=== PATIENT | female | born 1945 | race Caucasian/White ===

== ENCOUNTER 2016-12-24 21:42 | Inpatient (IN) | payer OTHER ==
[~2016-12-24] VITALS: Ht 152.4 cm; Wt 111.6 kg
--- NOTE | ~2016-12-24 | EKG ---
PATIENT: LISSETH PARISI UNIT #: [id number] Ventricular Rate: 67 BPM Atrial Rate: 67 BPM P-R Interval: 150 ms QRS Duration: 74 ms Q-T Interval: 416 ms QTC Calculation(Bezet): 439 ms P [place]: 31 degrees Calculated R [place]: 76 degrees Calculated T [place]: 142 degrees Diagnosis Line: Normal sinus rhythm Diagnosis Line: ST and T wave abnormality, consider anterolateral Diagnosis Line: ischemia Diagnosis Line: Abnormal ECG Diagnosis Line: When compared with ECG of 29-DEC-2016 08:18, Diagnosis Line: Premature supraventricular complexes are no longer Diagnosis Line: Present Diagnosis Line: Confirmed by JONNY BUCKNER MD ([id number]) on 01/01/2017 Diagnosis Line: 6:02:08 PM INTERPRETING MD: SITA TRAORE
--- NOTE | ~2016-12-24 | EKG ---
PATIENT: LISSETH PARISI UNIT #: [id number] Ventricular Rate: 103 BPM Atrial Rate: 103 BPM P-R Interval: 140 ms QRS Duration: 84 ms Q-T Interval: 360 ms QTC Calculation(Bezet): 471 ms P [place]: 41 degrees Calculated R [place]: 26 degrees Calculated T [place]: 153 degrees Diagnosis Line: Sinus tachycardia Diagnosis Line: Possible Left atrial enlargement Diagnosis Line: Poor R wave progression questionable lead position Diagnosis Line: or body habitus versus Anterior infarct , age Diagnosis Line: undetermined Diagnosis Line: ST and T wave abnormality, consider lateral ischemia Diagnosis Line: Abnormal ECG Diagnosis Line: No previous ECGs available Diagnosis Line: Confirmed by KEITH MCKEON MD ([id number]) on Diagnosis Line: 12/27/2016 3:51:20 PM INTERPRETING MD: SEDA
--- NOTE | ~2016-12-24 | CR63 ---
[facility] A Service of [facility] RADIOLOGY TEXT RESULTS PATIENT: LISSETH PARISI LOCATION: [facility] 334 : 46 UNIT #: [id number] AGE: [address]: Chuy Ortega MD SEX: F ORDER DR: [id number] [id number] [place], [place] [address] [id number] I MR#: [id number] #: [id number] NAME: LISSETH PARISI : 1945 SEX: F STUDY DATE/TIME: 12/28/2016 9:21 UNIT: [address] ROOM: [facility] STUDY DESCRIPTION: CR Chest 2 View Attending Physician: Chuy Ortega M.D. Referring Physician: Amee De La Torre M.D. Ordering Physician: Ricky Tee M.D. Primary Care Physician: Amee De La Torre M.D. MEDICAL IMAGING REPORT This report is preliminary unless electronic signature is present EXAM Chest x-ray HISTORY Shortness of breath, cough, chest pain for the past 3 days. COMPARISON 12/24/2016 TECHNIQUE Two views of the chest were obtained. FINDINGS The inspiratory effort is shallow. Bilateral pleural effusions are again noted and not significantly changed. Pulmonary vascular markings are mildly prominent and cardiomegaly is again noted. No new focal infiltrates are seen on either side. IMPRESSION Shallow inspiratory effort. Pulmonary vascular congestion with bilateral effusions and cardiomegaly has not changed significantly since the previous examination when differences in patient positioning are taken into account. Dictated by... Earl Mcgarry M.D. THIS IS AN ELECTRONICALLY VERIFIED REPORT Earl Mcgarry M.D. at 12/30/2016 6:00 AM RLF/adriana TD: 12/29/2016 07:08 [facility] A Service of [facility] RADIOLOGY TEXT RESULTS PATIENT: LISSETH PARISI LOCATION: [facility] 334- : 46 UNIT #: [id number] AGE: [address]: Chuy Ortega MD SEX: F ORDER DR: JOB #: [id number] MEDICAL IMAGING REPORT Page 1 of 1 COPY
--- NOTE | ~2016-12-24 | A ---
[facility] Nutrition Therapy DATE: 12/26/16 Patient: LISSETH PARISI Physician: SANJUANA Address: [address] [place] [address] Room/Bed: [address] [place] [address], Zip: [place] [address] Admit Date: 12/25/16 Date of : 46 Height: 5 0 Weight: 259 117.6 NUTRITIONAL ASSESSMENT: REASON: CONSULT PER NURSING - CHF DIET EDUCATION PATIENT ADMITTED FOR DYSPNEA, CHF, QUESTIONABLE NONSTEMI PMH: HTN, DM, DYSLIPIDEMIA, RECENT BRONCHITIS Anthropometrics: HT: 60", WT: 259#, BMI: 50.6 Assessment: PATIENT IS A 71 Y/O FEMALE ADMITTED FOR ABOVE. DURING VISIT PATIENT STATED SHE HAD LAP BAND SURGERY IN 2007 AND HAS LOST 75-80# SINCE THEN. PATIENT USED TO DO THE WEIGHT WATCHERS PROGRAM. THIS RD DISCUSSED THE IMPORTANCE OF FOLLOWING A CONSTANT CARBOHYDRATE DIET FOR HER DM, AND LOW NA/LOW FAT FOR HER CHF. PATIENT WAS RECEPTIVE OF THE INFORMATION, HOWEVER SHE DID NOT SEEM VERY INTERESTED IN FOLLOWING THE DIET OUTSIDE OF THE FACILITY. PATIENT STATED SHE "KNOWS WHAT TO DO" WHEN IT COMES TO HER DIABETES, AND SHE HAS A HARD TIME GIVING UP SALT. THE PATIENT ALSO WENT ON TO STATE THAT SHE HAS A FAMILY HISTORY OF DIABETES AND HEART DISEASE, SHE WAS BORN INTO IT, AND THAT IT WAS IN GOD'S HANDS NOW. THIS RD LEFT DIET EDUCATION MATERIAL AT BEDSIDE AND THE PATIENT DID NOT HAVE ANY FURTHER NUTRITION EDUCATION QUESTIONS. Intervention: NPO STATUS CURRENTLY, MEDS/FLUIDS PER MD Recommendations: 1. PATIENT CURRENTLY NPO. ONCE MEDICALLY FEASIBLE, RESUME 2GM NA, CC DIET WITH NO CAFFEINE 2. CONSULT RD WITH ANY FURTHER NUTRITION QUESTIONS OR CONCERNS Respectfully, BEVERLEY FORTE, RD, LD Food and Nutritional Services [facility] cc: client file
--- NOTE | ~2016-12-24 | EKG ---
PATIENT: LISSETH PARISI UNIT #: [id number] Ventricular Rate: 81 BPM Atrial Rate: 81 BPM P-R Interval: 138 ms QRS Duration: 78 ms Q-T Interval: 370 ms QTC Calculation(Bezet): 429 ms P [place]: 47 degrees Calculated R [place]: 32 degrees Calculated T [place]: 164 degrees Diagnosis Line: Normal sinus rhythm Diagnosis Line: Anterior infarct , age undetermined Diagnosis Line: T wave abnormality, consider lateral ischemia Diagnosis Line: Abnormal ECG Diagnosis Line: No previous ECGs available Diagnosis Line: Confirmed by LOU SPANN MD ([id number]) on Diagnosis Line: 12/26/2016 11:32:47 AM INTERPRETING MD: MARIA INES TRAORE
--- NOTE | ~2016-12-24 | EKG ---
PATIENT: LISSETH PARISI UNIT #: [id number] Ventricular Rate: 69 BPM Atrial Rate: 69 BPM P-R Interval: 152 ms QRS Duration: 84 ms Q-T Interval: 456 ms QTC Calculation(Bezet): 488 ms P [place]: 32 degrees Calculated R [place]: 28 degrees Calculated T [place]: 137 degrees Diagnosis Line: Normal sinus rhythm Diagnosis Line: Septal infarct (cited on or before 24-DEC-2016) Diagnosis Line: ST and T wave abnormality, consider anterolateral Diagnosis Line: ischemia Diagnosis Line: Abnormal ECG Diagnosis Line: When compared with ECG of 24-DEC-2016 22:26, Diagnosis Line: (unconfirmed) Diagnosis Line: T wave inversion now evident in Anterior leads Diagnosis Line: QT has lengthened Diagnosis Line: Confirmed by LOU SPANN MD ([id number]) on Diagnosis Line: 12/26/2016 11:39:15 AM INTERPRETING MD: MARIA INES TRAORE
--- NOTE | ~2016-12-24 | HP ---
Unit #: [id number] #: [id number] Patient: LISSETH PARISI [id number] [facility] [address] [facility]. [place], [place] [address] [id number] I MR#: [id number] NAME: LISSETH PARISI. ROOM: 334 Age: 71 Sex: F Admission Date: 12/25/2016 : 1945 Attending Physician: Chuy Ortega M.D. Referring Physician: Amee De La Torre M.D. Primary Care Physician: Amee De La Torre M.D. HISTORY AND PHYSICAL CHIEF COMPLAINT Dyspnea. HISTORY OF PRESENT ILLNESS Ms. Lara is a pleasant 71-year-old female, seen in room 334 at [facility]. She has no prior history of cardiac disease, myocardial infarction, stent. She is a lifelong nonsmoker. She states that she may have had a small stroke after her son of drug overdose last year. She is admitted with hypoxemia and continued dyspnea. She presented to an urgent care because she had bronchitis for 2 weeks, could not get her med she states, and started to become more short of breath, especially with exertion. Apparently, her oxygen level was low, and they left her car at the urgent care and transported [facility] to [facility]. She states that the main problem is she could not get her antibiotics. She has not developed any chest pain with exertion. Her mother in her 50s of a myocardial infarction. Ms. Lara has a history of hypertension, dyslipidemia, as well as diabetes. She stated to the people in the emergency room that she had coronary artery disease and CHF, although she stated to me that she did not have any. She has had no PND, orthopnea, syncope, or presyncope. She has had no edema or claudication. In the emergency room, her ECG showed no acute ST changes. Her glucose was 221, creatinine 1.1, potassium 4.3. Liver enzymes slightly elevated at 49 and 43 respectively. Troponin elevated at 0.49 at 3:50 this morning. Hemoglobin was 13.7, white blood count 8.0, platelet count 181,000. SOCIAL HISTORY Denies alcohol or tobacco in any form. FAMILY HISTORY Borderline positive, mother dying at age 59 suddenly. REVIEW OF SYSTEMS As per history of present illness. Otherwise, as stated below. GENERAL: No recent fever or chills. No recent weight change. ENDOCRINE: Negative for thyroid disease. Unit #: [id number] #: [id number] Patient: LISSETH PARISI HEENT: No auditory or visual disturbances. GASTROINTESTINAL: No melena, no hematochezia. RESPIRATORY: Difficulty getting breath. CARDIOVASCULAR: Vide supra. GENITOURINARY: No dysuria. No back pain suggestive of nephrolithiasis. NEUROLOGIC: No seizure disorder, recent CVA, or TIA. PSYCHOLOGICAL: No depression. PAST MEDICAL HISTORY 1. Hypertension. 2. Diabetes. 3. Dyslipidemia. 4. Recent bronchitis. ALLERGIES Iodine, iodine containing products, penicillins, codeine, epinephrine, hydrochlorothiazide, erythromycin, sulfamethoxazole from Bactrim, trimethoprim, and amoxicillin. MEDICATIONS Zetia 10 mg daily, nitroglycerin 0.4 mg daily, Starlix 60 mg b.i.d., Glucophage 500 mg b.i.d., Cozaar 100 mg b.i.d., insulin, Flonase, Tessalon, aspirin, ProAir. PHYSICAL EXAMINATION GENERAL: Pleasant, little bit dyspneic, in no acute distress. VITAL SIGNS: Respiratory rate is 19, heart rate 61 and regular, blood pressure 122/54, height 5 feet 0 inches, weight 260 pounds, BMI 50. SKIN: Warm and dry. No xanthelasma. MUSCULOSKELETAL: No missing digits. Moves easily for evaluation. NEUROLOGICAL: Appropriate mood and affect. Alert and oriented x3. HEENT: Pupils equal, round and reactive. No oral cyanosis. No icterus. NECK: Carotids clear to auscultation with no carotid bruits. Normal carotid upstroke bilaterally. Thyroid is normal in size and texture without masses or tenderness. CHEST: Clear to auscultation with no rales or wheezes. Good effort. CARDIAC: Normal point of maximum impulse. Normal S1 and S2. No S3, S4 or rub. ABDOMEN: No hepatosplenomegaly, masses or tenderness. Normal bowel sounds. No abdominal bruits heard. EXTREMITIES: No clubbing, cyanosis or edema. Excellent posterior tibial and dorsalis pedis pulses. DIAGNOSTIC STUDIES LABORATORY RESULTS: As above regarding ECG and troponins. BNP was elevated at 2145. IMPRESSION 1. Bronchitis. 2. Type [address]-elevation myocardial infarction with congestive heart failure probably acute on chronic, diastolic, likely related to the bronchitis. 3. Possible sleep apnea. 4. Hypertension. 5. Dyslipidemia. 6. Possible coronary artery disease and congestive heart failure in the past. 7. Diabetes. Unit #: [id number] #: [id number] Patient: LISSETH PARISI 8. No family history or tobacco history. PLANS 1. We will get Pulmonary involved regarding the bronchitis. 2. We will get Internal Medicine involved to help manage diabetes. 3. We will do an echo today. If significant CHF is present, we will do cardiac catheterization. If not, we will probably just do a stress test. We will see how she does. 4. We will diurese her. This should help her dyspnea. She needs an ischemic workup as well as a workup for sleep apnea. We will get care management involved since the patient did not appear to be procuring medications. Dictated by Ghazal Hu/moiz TD: 12/26/2016 02:39 JOB #: [id number] HISTORY AND PHYSICAL Page 1 of 1 X Lance Alston MD X HISTORY AND PHYSICAL
--- NOTE | ~2016-12-24 | CR72 ---
[facility] A Service of [facility] RADIOLOGY TEXT RESULTS PATIENT: LISSETH PARISI LOCATION: [facility] 334- : 46 UNIT #: [id number] AGE: [address]: Chuy Ortega MD SEX: F ORDER DR: [id number] [facility] [address] [facility]. [place], [place] [address] [id number] I MR#: [id number] #: [id number] NAME: LISSETH PARISI : 1945 SEX: F STUDY DATE/TIME: 12/24/2016 22:36 UNIT: [address] ROOM: [facility] STUDY DESCRIPTION: CR Chest Single View Portable Attending Physician: Chuy Ortega M.D. Referring Physician: Amee De La Torre M.D. Ordering Physician: Sage Stafford D.O. Primary Care Physician: Amee De La Torre M.D. MEDICAL IMAGING REPORT This report is preliminary unless electronic signature is present EXAM Portable chest, 12/24 22:36 hours INDICATION Cough, shortness of air and congestion for 3 days. FINDINGS AP portable chest is compared with 01/11/2016. Heart is enlarged. There is vascular congestion and pulmonary edema suggesting CHF. There are small bilateral pleural effusions. There is more dense opacity in the right base which may reflect atelectasis. Pneumonia should be excluded clinically. No pneumothorax. Dictated by... Earl Fontenot Jr., M.D. THIS IS AN ELECTRONICALLY VERIFIED REPORT Earl Fontenot Jr., M.D. at 12/26/2016 1:52 AM AJ/altagracia TD: 12/25/2016 11:47 JOB #: [id number] MEDICAL IMAGING REPORT Page 1 of 1 COPY
--- NOTE | ~2016-12-24 | BMI ---
[facility] Nutrition Therapy DATE: 12/25/16 Patient: LISSETH PARISI Physician: SANJUANA Address: [address] [place] [address] Room/Bed: [address] [place] [address], Zip: [place] [address] Admit Date: 12/25/16 Date of : 46 Height: 5 0 Weight: 260 117.93 HIGH BMI NOTE: DX: 71 y/o female, no H&P currently available ANTHROPOMETRICS: Ht: 60", Wt: 117.9 kg, BMI: 50 (stage III obese) DIET: Healthy heart INTERVENTION: Restricted diet, meds/fluids per MD RECOMMENDATIONS: Agree with above diet to promote a gradual weight loss towards a healthy BMI range. Add consistent carb restriction if pt has a hx of DM. Respectfully, Amee Trimble, JUANITA, LD Food and Nutritional Services [facility] cc: client file
--- NOTE | ~2016-12-24 | EKG ---
PATIENT: LISSETH PARISI UNIT #: [id number] Ventricular Rate: 65 BPM Atrial Rate: 65 BPM P-R Interval: 152 ms QRS Duration: 76 ms Q-T Interval: 446 ms QTC Calculation(Bezet): 463 ms P [place]: 19 degrees Calculated R [place]: 33 degrees Calculated T [place]: 144 degrees Diagnosis Line: Sinus rhythm with Premature supraventricular Diagnosis Line: complexes Diagnosis Line: Low voltage QRS Diagnosis Line: Septal infarct (cited on or before 24-DEC-2016) Diagnosis Line: ST and T wave abnormality, consider anterolateral Diagnosis Line: ischemia Diagnosis Line: Abnormal ECG Diagnosis Line: When compared with ECG of 26-DEC-2016 22:47, Diagnosis Line: Premature supraventricular complexes are now Diagnosis Line: Present Diagnosis Line: Vent. rate has decreased BY 38 BPM Diagnosis Line: Serial changes of Septal infarct Present Diagnosis Line: Confirmed by JONNY BUCKNER MD ([id number]) on 12/30/2016 Diagnosis Line: 5:22:59 AM INTERPRETING MD: SITA TRAORE
--- NOTE | ~2016-12-24 | EKG ---
PATIENT: LISSETH PARISI UNIT #: [id number] Ventricular Rate: 64 BPM Atrial Rate: 64 BPM P-R Interval: 156 ms QRS Duration: 84 ms Q-T Interval: 426 ms QTC Calculation(Bezet): 439 ms P [place]: 44 degrees Calculated R [place]: 56 degrees Calculated T [place]: 70 degrees Diagnosis Line: Normal sinus rhythm Diagnosis Line: Low voltage QRS Diagnosis Line: Septal infarct , age undetermined Diagnosis Line: ST and T wave abnormality, consider anterolateral Diagnosis Line: ischemia Diagnosis Line: Abnormal ECG Diagnosis Line: When compared with ECG of 31-DEC-2016 05:36, Diagnosis Line: (unconfirmed) Diagnosis Line: No significant change was found Diagnosis Line: Confirmed by JONNY BUCKNER MD ([id number]) on 01/01/2017 Diagnosis Line: 6:05:02 PM INTERPRETING MD: SITA TRAORE
[2016-12-24] MEDS ORDERED: ZETIA PO (22:24)
[2016-12-24] MEDS ORDERED: STARLIX PO (22:25)
[2016-12-24] MEDS ORDERED: NITROGLYGERIN0.4 MG PO (22:25)
[2016-12-24] MEDS ORDERED: METFORMIN PO (22:26)
[2016-12-24] MEDS ORDERED: COZAAR PO (22:27)
[2016-12-24] MEDS ORDERED: BASAGLAR K100 UNIT/1 SUBQ (22:28)
[2016-12-24] MEDS ORDERED: FLONASE 0.05% N16 G1 INH (22:29)
[2016-12-24] MEDS ORDERED: ASPIRIN EC81 M1 PO (22:29)
[2016-12-24] MEDS ORDERED: BENZONATATE PO (22:29)
[2016-12-24] MEDS ORDERED: PROAIR HFA8.5 GM INH (22:31)
[2016-12-24 22:41] LABS: POC - CKMB 3.7 ng/mL (0.0-7.9); POC - TROPONIN 0.32 ng/mL (<=0.05)
[2016-12-24 22:52] LABS: BASOPHIL% 0.3 % (0-2.5); EOSINOPHIL# 0.1 X10e3 (0-0.7); EOSINOPHIL% 1.7 % (0.0-7.0); HEMATOCRIT 41.9 % (35.0-45.0); HEMOGLOBIN 13.7 gm/dL (12.0-16.0); LYMPHOCYTE# 2.6 X10e3 (1.0-3.5); LYMPHOCYTE% 32.5 % (17.0-45.0); MEAN CELL VOLUME 90.4 FL (83-96); MEAN CORPUSCULAR HEMOGLOBIN 29.6 PG (28-34); MEAN CORPUSCULAR HGB CONC 32.8 g/dL (30-36); MEAN PLATELET VOLUME 9.1 FL (6.5-11.5); MONOCYTE# 0.6 X10e3 (0-1.0); MONOCYTE% 7.8 % (3.0-12.0); NEUTROPHIL# 4.6 X10e3 (1.5-7.1); NEUTROPHIL% 57.7 % (40-75); PLATELET COUNT 181 X10e3 (140-420); RED BLOOD COUNT 4.64 X10e (3.90-5.30); RED CELL DISTRIBUTION WIDTH 13.5 % (11.0-15.5)
[2016-12-24 22:54] LABS: DIFF IND NO
[2016-12-24 23:07] LABS: INR 0.9; PARTIAL THROMBOPLASTIN TIME 24.5 SECONDS (23.5-31.3); PROTHROMBIN TIME (PATIENT) 10.3 SECONDS (10.0-11.7)
[2016-12-25 00:10] LABS: POC - TROPONIN 0.45 ng/mL (<=0.05)
[2016-12-25 00:21] LABS: ALBUMIN SERUM 3.5 g/dL (3.5-5.0); BILIRUBIN, DIRECT 0.1 mg/dL (0.0-0.2); BILIRUBIN,INDIRECT 0.3 mg/dL (0.0-0.9); BILIRUBIN,TOTAL 0.4 mg/dL (0.2-2.0); BUN/CREATININE RATIO 23.63; CALCIUM SERUM 9.1 mg/dL (8.4-10.2); CREATININE SERUM 1.1 mg/dL (0.6-1.4); GLOM FILT RATE Estimated 50.8 mL/min (>60); POTASSIUM 4.6 mmol/L (3.5-5.1); PROTEIN TOTAL SERUM 6.3 g/dL (6.0-8.3)
[2016-12-25 05:13] LABS: BUN/CREATININE RATIO 22.72; CALCIUM SERUM 9.1 mg/dL (8.4-10.2); CREATININE SERUM 1.1 mg/dL (0.6-1.4); GLOM FILT RATE Estimated 50.8 mL/min (>60); POTASSIUM 4.3 mmol/L (3.5-5.1)
[2016-12-25 14:40] LABS: CHOLESTEROL 161 mg/dL (0-200); HDL CHOLESTEROL 48 mg/dL (35-95); LDL CHOLESTEROL 87 mg/dL ([, -130]); LDL/HDL RATIO 2 RATIO (0-4); TRIGLYCERIDES 131 mg/dL (10-160)
[2016-12-25 15:53] LABS: BUN/CREATININE RATIO 27.77; CALCIUM SERUM 8.9 mg/dL (8.4-10.2); CREATININE SERUM 0.9 mg/dL (0.6-1.4); GLOM FILT RATE Estimated 64.8 mL/min (>60); MAGNESIUM 1.5 mg/dL (1.6-3.0); POTASSIUM 4.2 mmol/L (3.5-5.1)
[2016-12-26 06:21] LABS: BUN/CREATININE RATIO 27.77; CALCIUM SERUM 8.7 mg/dL (8.4-10.2); CREATININE SERUM 0.9 mg/dL (0.6-1.4); GLOM FILT RATE Estimated 64.8 mL/min (>60); MAGNESIUM 1.6 mg/dL (1.6-3.0); POTASSIUM 3.8 mmol/L (3.5-5.1)
[2016-12-26 12:29] LABS: HEMATOCRIT 39.8 % (35.0-45.0); MEAN CELL VOLUME 89.5 FL (83-96); MEAN CORPUSCULAR HEMOGLOBIN 29.3 PG (28-34); MEAN CORPUSCULAR HGB CONC 32.7 g/dL (30-36); MEAN PLATELET VOLUME 9.3 FL (6.5-11.5); RED BLOOD COUNT 4.45 X10e (3.90-5.30); RED CELL DISTRIBUTION WIDTH 13.7 % (11.0-15.5); WHITE BLOOD COUNT 7.1 X10e3 (4.0-10.5)
[2016-12-26 12:43] LABS: PROTHROMBIN TIME (PATIENT) 10.7 SECONDS (10.0-11.7)
[2016-12-26 12:45] LABS: PARTIAL THROMBOPLASTIN TIME 33.1 SECONDS (23.5-31.3)
[2016-12-26 13:02] LABS: CALCIUM SERUM 9.3 mg/dL (8.4-10.2); GLOM FILT RATE Estimated 57.1 mL/min (>60); POTASSIUM 4.6 mmol/L (3.5-5.1)
[2016-12-26 13:36] LABS: URINE APPEARANCE CLEAR; URINE BILIRUBIN NEG (NEG); URINE BLOOD NEG (NEG); URINE COLOR YELLOW; URINE GLUCOSE NEG (NEG); URINE KETONE NEG (NEG); URINE LEUKOCYTE ESTERASE NEG (NEG); URINE NITRATE NEG (NEG); URINE PH 6.5 (5-8); URINE PROTEIN TRACE (NEG); URINE SPECIFIC GRAVITY 1.008 (1.003-1.035); URINE UROBILINOGEN 0.2 MG/DL (NEG)
[2016-12-26 14:42] LABS: AMPHETAMINE NEG (NEG); BARBITURATES NEG (NEG); BENZODIAZEPINES NEG (NEG); COCAINE NEG (NEG); MARIJUANA NEG (NEG); OPIATES NEG (NEG); TRICYCLIC ANTIDEPRESSANTS NEG (NEG); U METHADONE NEG (NEG)
[2016-12-27 14:29] LABS: BUN/CREATININE RATIO 26.25; CALCIUM SERUM 8.9 mg/dL (8.4-10.2); CREATININE SERUM 1.6 mg/dL (0.6-1.4); GLOM FILT RATE Estimated 32.3 mL/min (>60); POTASSIUM 4.5 mmol/L (3.5-5.1)
[2016-12-28 06:32] LABS: BUN/CREATININE RATIO 27.89; CALCIUM SERUM 8.4 mg/dL (8.4-10.2); CREATININE SERUM 1.9 mg/dL (0.6-1.4); GLOM FILT RATE Estimated 26.3 mL/min (>60); MAGNESIUM 1.8 mg/dL (1.6-3.0); POTASSIUM 4.1 mmol/L (3.5-5.1)
[2016-12-29 07:32] LABS: HEMATOCRIT 35.9 % (35.0-45.0); HEMOGLOBIN 11.7 gm/dL (12.0-16.0); MEAN CELL VOLUME 90.1 FL (83-96); MEAN CORPUSCULAR HEMOGLOBIN 29.4 PG (28-34); MEAN CORPUSCULAR HGB CONC 32.6 g/dL (30-36); MEAN PLATELET VOLUME 9.2 FL (6.5-11.5); RED BLOOD COUNT 3.98 X10e (3.90-5.30); RED CELL DISTRIBUTION WIDTH 13.6 % (11.0-15.5); WHITE BLOOD COUNT 6.7 X10e3 (4.0-10.5)
[2016-12-29 07:57] LABS: PARTIAL THROMBOPLASTIN TIME 25.4 SECONDS (23.5-31.3); PROTHROMBIN TIME (PATIENT) 10.4 SECONDS (10.0-11.7)
[2016-12-29 08:35] LABS: CALCIUM SERUM 8.4 mg/dL (8.4-10.2); CREATININE SERUM 1.6 mg/dL (0.6-1.4); GLOM FILT RATE Estimated 32.3 mL/min (>60); POTASSIUM 4.4 mmol/L (3.5-5.1)
[2016-12-30 10:29] LABS: BUN/CREATININE RATIO 41.81; CALCIUM SERUM 8.6 mg/dL (8.4-10.2); CREATININE SERUM 1.1 mg/dL (0.6-1.4); GLOM FILT RATE Estimated 50.8 mL/min (>60); POTASSIUM 4.8 mmol/L (3.5-5.1)
[2016-12-31 05:46] LABS: HEMATOCRIT 35.7 % (35.0-45.0); HEMOGLOBIN 11.8 gm/dL (12.0-16.0); MEAN CELL VOLUME 90.5 FL (83-96); MEAN CORPUSCULAR HGB CONC 33.1 g/dL (30-36); MEAN PLATELET VOLUME 9.3 FL (6.5-11.5); RED BLOOD COUNT 3.94 X10e (3.90-5.30); RED CELL DISTRIBUTION WIDTH 13.7 % (11.0-15.5); WHITE BLOOD COUNT 7.1 X10e3 (4.0-10.5)
[2016-12-31 06:03] LABS: PARTIAL THROMBOPLASTIN TIME 26.1 SECONDS (23.5-31.3); PROTHROMBIN TIME (PATIENT) 10.7 SECONDS (10.0-11.7)
[2016-12-31 06:26] LABS: CALCIUM SERUM 8.7 mg/dL (8.4-10.2); GLOM FILT RATE Estimated 57.1 mL/min (>60); POTASSIUM 4.4 mmol/L (3.5-5.1)
[2016-12-31 13:54] LABS: BASOPHIL% 0.2 % (0-2.5); EOSINOPHIL% 0.3 % (0.0-7.0); HEMATOCRIT 32.8 % (35.0-45.0); HEMOGLOBIN 10.6 gm/dL (12.0-16.0); LYMPHOCYTE# 1.9 X10e3 (1.0-3.5); LYMPHOCYTE% 18.6 % (17.0-45.0); MEAN CELL VOLUME 90.9 FL (83-96); MEAN CORPUSCULAR HEMOGLOBIN 29.5 PG (28-34); MEAN CORPUSCULAR HGB CONC 32.5 g/dL (30-36); MEAN PLATELET VOLUME 9.5 FL (6.5-11.5); MONOCYTE# 0.2 X10e3 (0-1.0); MONOCYTE% 2.2 % (3.0-12.0); NEUTROPHIL# 7.9 X10e3 (1.5-7.1); NEUTROPHIL% 78.7 % (40-75); PLATELET COUNT 181 X10e3 (140-420); RED BLOOD COUNT 3.61 X10e (3.90-5.30); WHITE BLOOD COUNT 10.1 X10e3 (4.0-10.5)
[2016-12-31 13:55] LABS: DIFF IND NO
[2016-12-31 14:48] LABS: ARTERIAL BLD GAS O2 SATURATION 86.3 % (90.0-100.0); ARTERIAL BLOOD GAS ART SITE RIGHT RADIAL; ARTERIAL BLOOD GAS CARBOXY HB 1.2 %sat (0.0-9.0); ARTERIAL BLOOD GAS HCO3 19.8 mmol/L; ARTERIAL BLOOD GAS MET HB 0.7 %sat (0.0-2.0); ARTERIAL BLOOD GAS PCO2 38.2 mmHg (35.0-45.0); ARTERIAL BLOOD GAS PO2 56.5 mmHg (80.0-100); ARTERIAL BLOOD GAS pH 7.322 (7.350-7.450); ARTERIAL DRAW? YES
[2016-12-31 14:49] LABS: ARTERIAL BLOOD GAS DELIVERY VENTURI
== END 2016-12-31 16:09 | disposition expired | DRG 246 ==
LOC: CED 21:42 → CEDOF 12-25 00:54 → C3A PCU 12-25 00:54 → CEDOF 12-25 01:11 → CED 12-25 01:11 → CEDOF 12-25 07:41 → C3A PCU 12-25 07:41 → C5B 12-30 20:06 → CICCU3 12-31 14:21
PROVIDERS: Emergency Medicine; Internal Medicine Cardiovascular Disease; Physician Assistant Medical
PROC: B246YZZ Ultrasonography of Right and Left Heart using Other Contrast (ICD-10-PCS; 2016-12-25)
PROC: 4A023N7 Measurement of Cardiac Sampling and Pressure, Left Heart, Percutaneous Approach (ICD-10-PCS; principal; 2016-12-29)
PROC: B211YZZ Fluoroscopy of Multiple Coronary Arteries using Other Contrast (ICD-10-PCS; 2016-12-29)
PROC: B215YZZ Fluoroscopy of Left Heart using Other Contrast (ICD-10-PCS; 2016-12-29)
PROC: 027034Z Dilation of Coronary Artery, One Artery with Drug-eluting Intraluminal Device, Percutaneous Approach (ICD-10-PCS; 2016-12-31)
DX: I13.0 Hypertensive heart and chronic kidney disease with heart failure and stage 1 through stage 4 chronic kidney disease, or unspecified chronic kidney disease (principal); I50.43 Acute on chronic combined systolic (congestive) and diastolic (congestive) heart failure; J96.00 Acute respiratory failure, unspecified whether with hypoxia or hypercapnia; I46.9 Cardiac arrest, cause unspecified; R57.1 Hypovolemic shock; N17.9 Acute kidney failure, unspecified; I08.1 Rheumatic disorders of both mitral and tricuspid valves; Z68.43 Body mass index [BMI] 50.0-59.9, adult; T82.855A Stenosis of coronary artery stent, initial encounter; L76.32 Postprocedural hematoma of skin and subcutaneous tissue following other procedure; E11.22 Type 2 diabetes mellitus with diabetic chronic kidney disease; E11.65 Type 2 diabetes mellitus with hyperglycemia; N18.9 Chronic kidney disease, unspecified; E78.5 Hyperlipidemia, unspecified; Z88.0 Allergy status to penicillin; Z88.5 Allergy status to narcotic agent; Z88.2 Allergy status to sulfonamides; J40 Bronchitis, not specified as acute or chronic; I25.10 Atherosclerotic heart disease of native coronary artery without angina pectoris; E11.51 Type 2 diabetes mellitus with diabetic peripheral angiopathy without gangrene; E66.9 Obesity, unspecified; G47.33 Obstructive sleep apnea (adult) (pediatric); Y84.0 Cardiac catheterization as the cause of abnormal reaction of the patient, or of later complication, without mention of misadventure at the time of the procedure
CPT/HCPCS: 36415; 36600; 71010; 71020; 80048; 80061; 80076; 80307; 81003; 82550; 82553; 82803; 82947; 83036; 83735; 83880; 84443; 84484; 85025; 85027; 85347; 85610; 85730; 92950; 93005; 93306; 94640; 94660; 94664; 94760; 96374; 99152; 99153; 99285; C1725; C1750; C1769; C1874; C1887; C1894; J0171; J0461; J1200; J1265; J1644; J1815; J1940; J2250; J2270; J2370; J2405; J2550; J2720; J2930; J3010